=== PATIENT | male | born 1945 | race Caucasian/White ===

== ENCOUNTER 2016-05-24 05:03 | Inpatient (IN) | payer OTHER ==
[~2016-05-24] VITALS: Ht 170.2 cm; Wt 117.0 kg
[2016-05-24] VITALS (7 sets, daily range): BP systolic 107–126; BP diastolic 64–83
[2016-05-24] MEDS ORDERED: BACITRACIN 50000 UNITS/VIAL ONE (06:04)
[2016-05-24] MEDS ORDERED: BUPIVACAINE MPF 0.5% W/EPI INJ 30 ML VIAL ONE ×3 (06:04→08:16)
[2016-05-24] MEDS ORDERED: KETOROLAC TROMETHAMINE INJ 30 MG/ML VIAL ONE (06:04)
[2016-05-24] MEDS ORDERED: ATOR20TA PO (06:21)
[2016-05-24] MEDS ORDERED: MORPHINE SULFATE/PF 10 MG/10ML (1MG/ML) AMPUL ONE (06:21)
[2016-05-24] MEDS ORDERED: TRIA1TAB3 PO (06:21)
[2016-05-24] MEDS ORDERED: LISI10TA5 PO (06:21)
[2016-05-24] MEDS ORDERED: MIDAZOLAM HCL 2 MG/2ML VIAL ONE ×2 (06:22)
[2016-05-24] MEDS ORDERED: SUCCINYLCHOLINE CHLORIDE 20 MG/ML VIAL ONE (06:22)
[2016-05-24] MEDS ORDERED: IV LR 1000 ML 1,000 ML ONE (06:40)
[2016-05-24] MEDS ORDERED: IV SET PRIMARY 1 EA INFUS.SET MC ONE (06:40)
[2016-05-24] MEDS ORDERED: NEEDLELESS EST SET LARGE BORE 1 EA INFUS.SET MC ONE (06:40)
[2016-05-24] MEDS ORDERED: CLINDAMYCIN 900 MG/6 ML VIAL ONE (06:47)
[2016-05-24] MEDS ORDERED: TRANEXAMIC ACID 3,000 MG in SODIUM CHLORIDE IRRIG SOLUTION 70 ML IR ONE (07:00)
[2016-05-24] MEDS ORDERED: METOCLOPRAMIDE HCL 10 MG/2 ML VIAL ONE (08:45)
[2016-05-24] MEDS ORDERED: SENOKOT 8.6 MG TABLET PO PRN (09:00)
[2016-05-24] MEDS ORDERED: COLACE 250 MG CAPSULE PO PRN (09:00)
[2016-05-24] MEDS ORDERED: DULCOLAX 10 MG/SUPP.RECT RC PRN (09:00)
[2016-05-24] MEDS ORDERED: CLINDAMYCIN 600 MG in IV D5W 50 ML IV SCH (09:00)
[2016-05-24] MEDS ORDERED: ZOFRAN 4mg/2ML IV PRN (09:00)
[2016-05-24] MEDS ORDERED: TYLENOL 650 MG TABLET PO PRN (09:00)
[2016-05-24] MEDS ORDERED: diphenhydrAMINE HCL 50 MG/ML VIAL IM PRN (09:30)
[2016-05-24] MEDS ORDERED: MORPHINE SULFATE INJ 2 MG/ML DISP.SYRIN IV PRN (09:30)
[2016-05-24] MEDS ORDERED: NALOXONE HCL 0.4 MG/ML AMPUL IV PRN (09:30)
[2016-05-24] MEDS ORDERED: IV SET PRIMARY PUMP SET 1 EA INFUS.SET MC ONE (10:56)
[2016-05-24] MEDS: IV D5/0.45 NACL 1,000 ML IV PRN (11:02)
[2016-05-24] MEDS ORDERED: SECONDARY IV SET 1 EA INFUS.SET MC ONE (12:17)
[2016-05-24] MEDS: CLINDAMYCIN 600 MG in IV D5W 50 ML IV SCH ×2 (12:21→18:08)
[2016-05-24 13:22] LABS: BASOPHILS % (AUTO) 0.1 % (0.0-2.0); DIFF TOTAL % 100 %; EOSINOPHILS % (AUTO) 0.1 % (0.0-6.0); HEMATOCRIT 42 % (39-51); HEMOGLOBIN 13.8 g/dL (13.5-17.5); LYMPHOCYTES % (AUTO) 7.3 % (20.0-44.0); MEAN CORPUSCULAR HEMOGLOBIN 29 PG (26.0-33.0); MEAN CORPUSCULAR HGB CONC 33 g/dl (31.0-36.0); MEAN CORPUSCULAR VOLUME 90 fL (80-96); MONOCYTES # (AUTO) 0.1 /CMM (0.1-1.30); MONOCYTES % (AUTO) 0.9 % (2.0-12.0); NEUTROPHILS # (AUTO) 12.5 /CMM (1.8-8.9); NEUTROPHILS % (AUTO) 91.6 % (43.0-81.0); PLATELET COUNT (AUTO) 200 /CMM (150-450); RED BLOOD CELL COUNT(AUTO) 4.71 MIL/uL (4.5-6.0); WHITE BLOOD COUNT (AUTO) 13.6 K/uL (4.3-11.0)
[2016-05-24 13:31] LABS: ALBUMIN 3.5 g/dL (3.4-5.0); BILIRUBIN,TOTAL 0.6 mg/dL (0.2-1.0); CALCIUM, SERUM 8.4 mg/dL (8.5-10.1); CREATININE 1.1 mg/dL (0.6-1.3); POTASSIUM 4.7 mmol/L (3.5-5.1); TOTAL PROTEIN, SERUM 7.3 g/dL (6.4-8.2)
[2016-05-24] MEDS ORDERED: Z GUARD REMEDY 2 OZ OINT TP PRN (14:30)
[2016-05-24] MEDS ORDERED: MAG HYDROX/AL HYDROX/SIMETH 30 ML UDC PO PRN (14:30)
[2016-05-24] MEDS ORDERED: HYDROCODONE/APAP 5/325MG 1 EACH TABLET PO PRN (14:30)
[2016-05-24] MEDS ORDERED: ANCEF 1 G in IV D5W 50 ML IV SCH (15:00)
[2016-05-25] VITALS: BP 114/71
[2016-05-25] MEDS: IV D5/0.45 NACL 1,000 ML IV PRN (01:20)
[2016-05-25] MEDS: CLINDAMYCIN 600 MG in IV D5W 50 ML IV SCH (01:21)
[2016-05-25 04:00] VITALS: BP 113/62
[2016-05-25 07:05] LABS: BASOPHILS % (AUTO) 0.2 % (0.0-2.0); DIFF TOTAL % 100 %; EOSINOPHILS % (AUTO) 0.1 % (0.0-6.0); HEMATOCRIT 39 % (39-51); HEMOGLOBIN 12.9 g/dL (13.5-17.5); LYMPHOCYTES # (AUTO) 1.7 /CMM (0.8-4.8); LYMPHOCYTES % (AUTO) 12.5 % (20.0-44.0); MEAN CORPUSCULAR HEMOGLOBIN 30 PG (26.0-33.0); MEAN CORPUSCULAR HGB CONC 33 g/dl (31.0-36.0); MEAN CORPUSCULAR VOLUME 90 fL (80-96); MONOCYTES % (AUTO) 7.7 % (2.0-12.0); NEUTROPHILS # (AUTO) 10.6 /CMM (1.8-8.9); NEUTROPHILS % (AUTO) 79.5 % (43.0-81.0); PLATELET COUNT (AUTO) 192 /CMM (150-450); RED BLOOD CELL COUNT(AUTO) 4.33 MIL/uL (4.5-6.0); WHITE BLOOD COUNT (AUTO) 13.4 K/uL (4.3-11.0)
[2016-05-25 07:31] LABS: CALCIUM, SERUM 8.4 mg/dL (8.5-10.1); CREATININE 0.9 mg/dL (0.6-1.3); POTASSIUM 4.3 mmol/L (3.5-5.1)
[2016-05-25 08:00] VITALS: BP 112/76
[2016-05-25] MEDS: HYDROCODONE/APAP 5/325MG 1 EACH TABLET PO PRN ×5 (08:13→21:05)
[2016-05-25] MEDS: PANTOPRAZOLE 40 MG TABLET.DR PO SCH (08:14)
[2016-05-25] MEDS: TRIAMTERENE/HYDROCHLOROTHIAZID (37.5/25MG) 1 UDCAP PO SCH (08:14)
[2016-05-25] MEDS: LISINOPRIL (10MG) 10 MG TABLET PO SCH (08:15)
[2016-05-25] MEDS: ATORVASTATIN 10 MG TABLET PO SCH (08:15)
[2016-05-25] MEDS: RIVAROXABAN 10 MG TABLET PO SCH (09:37)
[2016-05-25 16:00] VITALS: BP_SYST 105; BP_SYST 112; BP_DIAS 62; BP_DIAS 76
[2016-05-25] MEDS: MAGNESIUM HYDROXIDE 30 ML UDC PO PRN (16:57)
[2016-05-25 20:00] VITALS: BP 132/80
[2016-05-25] MEDS: AMBIEN 5 MG TABLET PO PRN (21:02)
[2016-05-26] MEDS ORDERED: diphenhydrAMINE HCL 25 MG CAPSULE PO PRN
[2016-05-26] MEDS ORDERED: HYDROMORPHONE 1 MG/1 ML DISP.SYRIN SQ PRN
[2016-05-26] MEDS ORDERED: HYDROCODONE/APAP 10/325MG 1 EA TABLET ONE ×2 (01:09→05:26)
[2016-05-26] MEDS: HYDROCODONE/APAP 10/325MG 1 EA TABLET PO PRN ×5 (01:15→21:42)
[2016-05-26 08:00] VITALS: BP 116/80
[2016-05-26] MEDS: ATORVASTATIN 10 MG TABLET PO SCH (08:15)
[2016-05-26] MEDS: PANTOPRAZOLE 40 MG TABLET.DR PO SCH (08:15)
[2016-05-26] MEDS: LISINOPRIL (10MG) 10 MG TABLET PO SCH (08:16)
[2016-05-26] MEDS: TRIAMTERENE/HYDROCHLOROTHIAZID (37.5/25MG) 1 UDCAP PO SCH (08:16)
[2016-05-26] MEDS: DOCUSATE SODIUM 100 MG CAPSULE PO SCH ×2 (08:18→16:40)
[2016-05-26 08:38] VITALS: BP 116/80
[2016-05-26] MEDS ORDERED: RIVA10TA PO (10:46)
[2016-05-26] MEDS ORDERED: HYDR-3658 PO (10:46)
[2016-05-26 16:00] VITALS: BP 117/72
[2016-05-26] MEDS: RIVAROXABAN 10 MG TABLET PO SCH (16:40)
[2016-05-26 17:03] VITALS: BP 117/72
[2016-05-26 20:00] VITALS: BP 108/59
[2016-05-26] MEDS: AMBIEN 5 MG TABLET PO PRN (21:28)
[2016-05-27 08:00] VITALS: BP 125/74
[2016-05-27] MEDS: PANTOPRAZOLE 40 MG TABLET.DR PO SCH (08:12)
[2016-05-27] MEDS: HYDROCODONE/APAP 10/325MG 1 EA TABLET PO PRN ×4 (08:12→20:50)
[2016-05-27] MEDS: TRIAMTERENE/HYDROCHLOROTHIAZID (37.5/25MG) 1 UDCAP PO SCH (08:12)
[2016-05-27] MEDS: LISINOPRIL (10MG) 10 MG TABLET PO SCH (08:12)
[2016-05-27] MEDS: DOCUSATE SODIUM 100 MG CAPSULE PO SCH ×2 (08:12→16:15)
[2016-05-27] MEDS: ATORVASTATIN 10 MG TABLET PO SCH (08:12)
[2016-05-27] MEDS: MAGNESIUM HYDROXIDE 30 ML UDC PO PRN (08:13)
[2016-05-27 16:00] VITALS: BP 122/78
[2016-05-27] MEDS: RIVAROXABAN 10 MG TABLET PO SCH (16:15)
[2016-05-27 20:00] VITALS: BP 110/76
[2016-05-27] MEDS: AMBIEN 5 MG TABLET PO PRN (20:49)
[2016-05-28 08:00] VITALS: BP 128/76
[2016-05-28] MEDS: HYDROCODONE/APAP 10/325MG 1 EA TABLET PO PRN ×2 (09:02→14:59)
[2016-05-28 09:03] VITALS: BP 128/76
[2016-05-28] MEDS: LISINOPRIL (10MG) 10 MG TABLET PO SCH (09:03)
[2016-05-28] MEDS: DOCUSATE SODIUM 100 MG CAPSULE PO SCH ×2 (09:03→17:30)
[2016-05-28] MEDS: ATORVASTATIN 10 MG TABLET PO SCH (09:03)
[2016-05-28] MEDS: TRIAMTERENE/HYDROCHLOROTHIAZID (37.5/25MG) 1 UDCAP PO SCH (09:03)
[2016-05-28] MEDS: PANTOPRAZOLE 40 MG TABLET.DR PO SCH (09:04)
[2016-05-28] MEDS: RIVAROXABAN 10 MG TABLET PO SCH (17:31)
== END 2016-05-28 18:15 | DRG 470 ==
LOC: DS 05:03 → MED 10:37 → TELE 12:01 → MED 05-25 11:36
PROVIDERS: ADMIT Internal Medicine; ATTEND Internal Medicine
PROC: 0SRC0J9 Replacement of Right Knee Joint with Synthetic Substitute, Cemented, Open Approach (ICD-10-PCS; principal; 2016-05-24 06:30)
DX: M17.11 Unilateral primary osteoarthritis, right knee (principal); Z68.41 Body mass index [BMI] 40.0-44.9, adult; E44.0 Moderate protein-calorie malnutrition; E78.5 Hyperlipidemia, unspecified; I10 Essential (primary) hypertension; R73.9 Hyperglycemia, unspecified; D72.829 Elevated white blood cell count, unspecified; E66.9 Obesity, unspecified; E78.00 Pure hypercholesterolemia, unspecified; Z79.01 Long term (current) use of anticoagulants
CPT/HCPCS: 36415; 80048-TC; 80053-TC; 83735-TC; 84100-TC; 85025-TC; 86850-TC; 86921-TC; 87081-TC; 88305-TC; 88311-TC; 97001-TC; 97110-TC; 97116-TC; 97530-TC; 97760-TC; A4217; A6402; C1713; J0330; J1885; J2250; J2274; J2405; J2765; J3490; J7060; J7120; Z7610